=== PATIENT | male | born 1965 | race Caucasian/White ===

== ENCOUNTER 2016-10-20 07:46 | Emergency (ER) | payer SELFPAY ==
[~2016-10-20] VITALS: Ht 180.3 cm; Wt 177.0 kg
[2016-10-20] MEDS ORDERED: SILVER NITRATE APPLICATOR STICK TOP ONE (08:45)
[2016-10-20 12:31] LABS: HEMATOCRIT 42.3 % (42.0-52.0); MEAN CORPUSCULAR HEMOGLOBIN 28.8 pg (28.0-32.0); MEAN CORPUSCULAR VOLUME 87.4 fL (80.0-94.0); PLATELET 283 x1000/uL (130-400); RED BLOOD CELL COUNT 4.84 mill/uL (4.7-6.1); RED CELL DISTRIBUTION WIDTH 14.1 % (11.6-14.6); WHITE BLOOD COUNT 13.8 x1000/uL (4.5-11.0)
[2016-10-20 14:37] LABS: INR 1.1; PROTHROMBIN TIME 11.2 sec
[2016-10-20 19:26] VITALS: BP 163/100
== END 2016-10-20 20:07 | disposition short-term general hospital (02) ==
LOC: ER 09:12
DX: R04.0 Epistaxis (principal); M25.561 Pain in right knee
CPT/HCPCS: 30901; 36415; 80329; 85027; 85610; 99285